=== PATIENT | male | born 1955 | race Caucasian/White ===

== ENCOUNTER 2016-07-17 09:52 | Emergency (ER) | payer SELFPAY ==
[~2016-07-17] VITALS: Ht 167.6 cm; Wt 79.0 kg
[2016-07-17 10:01] VITALS: Ht 167.6 cm; Wt 79.0 kg
[2016-07-17] MEDS ORDERED: morphine 4 MG/ML VIAL IV STA (10:23)
[2016-07-17] MEDS ORDERED: ONDANSETRON 4 MG INJ IV STA (10:23)
[2016-07-17] MEDS ORDERED: SOD CHLORIDE 0.9% 1,000 ML IV STA (10:23)
[2016-07-17 10:48] LABS: ADD SCAN DIFF NO
[2016-07-17 10:55] LABS: BASOPHILS % 0.2 % (0.0-2.0); HEMATOCRIT 46.1 % (42.0-52.0); HEMOGLOBIN 16.3 g/dl (14.0-18.0); LYMPHOCYTES # 1.3 10^3/ul (0.8-2.9); LYMPHOCYTES % 9.7 % (15.0-51.0); MEAN CORPUSCULAR HEMOGLOBIN 30.6 pg (29.0-33.0); MEAN CORPUSCULAR HGB CONC 35.4 g/dl (32.0-37.0); MEAN CORPUSCULAR VOLUME 86.5 fl (82.0-101.0); MONOCYTE # 1.2 10^3/ul (0.3-0.9); MONOCYTES % 8.9 % (0.0-11.0); NEUTROPHIL # 11.1 10^3/ul (1.6-7.5); PLATELET COUNT 313 10^3/UL (140-415); RED BLOOD COUNT 5.33 10^6/ul (4.70-6.10); RED CELL DISTRIBUTION WIDTH 12.3 % (11.5-14.5); WHITE BLOOD COUNT 13.8 10^3/ul (4.8-10.8)
[2016-07-17 10:58] LABS: ADD UMIC NO; URINE BILIRUBIN (Dip) NEGATIVE (NEGATIVE); URINE BLOOD (Dip) NEGATIVE (NEGATIVE); URINE COLOR LT. YELLOW (YELLOW); URINE GLUCOSE (Dip) NEGATIVE (NEGATIVE); URINE KETONES (Dip) NEGATIVE (NEGATIVE); URINE LEUKOCYTE ESTERASE (Dip) NEGATIVE (NEGATIVE); URINE NITRITE (Dip) NEGATIVE (NEGATIVE); URINE TOTAL PROTEIN (Dip) NEGATIVE (NEGATIVE); URINE UROBILINOGEN (Dip) 2.0 E.U./dL (0.1-1.0)
[2016-07-17 11:00] LABS: ALBUMIN 4.1 g/dl (3.3-4.9); CHLORIDE 98 mmol/L (97-110)
[2016-07-17 11:01] LABS: POTASSIUM 3.7 mmol/L (3.5-5.1); SODIUM 134 mmol/L (135-144)
[2016-07-17 11:03] LABS: ALBUMIN/GLOBULIN RATIO 1.05; ALKALINE PHOSPHATASE 104 IU/L (42-121); ANION GAP 13 (8-16); ASPARTATE AMINO TRANSFERASE 21 IU/L (15-46); BILIRUBIN,INDIRECT 0.9 mg/dl (0-1.1); BILIRUBIN,TOTAL 0.9 mg/dl (0.2-1.3); BLOOD UREA NITROGEN 12 mg/dl (7-20); CARBON DIOXIDE 27 mmol/L (21-31); CREATININE 0.92 mg/dl (0.61-1.24)
[2016-07-17 11:04] LABS: ALANINE AMINOTRANSFERASE 31 IU/L (13-69); CALCIUM 9.8 mg/dl (8.4-10.2); GLUCOSE 129 mg/dl (70-220)
[2016-07-17 11:18] LABS: TROPONIN-I < 0.012 ng/ml (0.00-0.12)
--- NOTE | 2016-07-17 11:24 | RADRPT ---
PROCEDURE: US Abdomen. CLINICAL INDICATION: abdominal pain TECHNIQUE: Multiple real-time images were acquired of the patient's right upper quadrant abdomen a nd retroperitoneum utilizing a high resolution transducer. COMPARISON: None FINDINGS: The liver demonstrates normal echogenicity. The liver is normal in size and no focal solid lesions are seen. The liver measures 14.6 cm in length. The portal vein is patent with normal direction of f low. No intrahepatic biliary dilatation is seen. There is a 1.1 cm stone within the gallbladder. There is no evidence of pericholecystic fluid. The gallbladder wall measures 3 mm in thickness.. The common bile duct measures 2 mm in maximal dimensi on. The pancreas is not seen due to overlying bowel gas. No free fluid is identified. The right kidney is normal in size, and demonstrate normal echogenicity and cortical thickness. The right kidney measures 10.1 cm in long dimension. There is no evidence of hydronephrosis. There are no kidney stones. RPTAT: AA IMPRESSION: Single calcified stone within the gallbladder with borderline gallbladder wall thickening. No evide nce of pericholecystic fluid. Negative sonographic Coker's sign. .Cody Contreras MD, Date Time Electronically viewed and signed by .Cody Contreras MD, on 07/17/2016 11:24 .S/
[2016-07-17] MEDS ORDERED: ONDA4TAB14 PO (11:38)
[2016-07-17] MEDS ORDERED: HYDR-902 PO (11:38)
--- NOTE | 2016-07-17 11:40 | ERD ---
ER Documentation Chief Complaint Date/Time DATE: 07/17/16 TIME: 11:40 Chief Complaint ap with n/v x 3 days; ROS All systems reviewed and are negative except as per history of present illness. Medications Home Meds Active Scripts Ondansetron (Ondansetron Odt) 4 Mg Tab.rapdis, 4 MG PO Q6H Y for NAUSEA AND/OR VOMITING, #30 TAB Prov:ARMAND MCKEON MD 07/17/16 Hydrocodone/Acetaminophen ([place] 10-325 Tablet) 1 Each Tablet, 1 TAB PO Q6H Y for PAIN, #12 TAB Prov:ARMAND MCKEON MD 07/17/16 PMhx/Soc Medical and Surgical Hx: pt denies Medical Hx, pt denies Surgical Hx Hx Alcohol Use: Yes (etoh "continuously" last drink monday) Hx Substance Use: No Hx Tobacco Use: No Smoking Status: Never smoker Physical Exam Vitals Vital Signs Date Time Temp Pulse Resp B/P Pulse Ox O2 Delivery O2 Flow Rate FiO2 07/17/16 10:01 98.2 67 18 180/89 99 Physical Exam Const: [] Head: Atraumatic Eyes: Normal Conjunctiva ENT: Normal External Ears, Nose and Mouth. Neck: Full range of motion..~ No meningismus. Resp: Clear to auscultation bilaterally Cardio: Regular rate and rhythm, no murmurs Abd: Soft, non tender, non distended. Normal bowel sounds Skin: No petechiae or rashes Back: No midline or flank tenderness Ext: No cyanosis, or edema Neur: Awake and alert Psych: Normal Mood and Affect Result Diagram: 07/17/16 1026 07/17/16 1026 Results 24 hrs Laboratory Tests Test 07/17/16 10:26 White Blood Count 13.810^3/ul Red Blood Count 5.3310^6/ul Hemoglobin 16.3g/dl Hematocrit 46.1% Mean Corpuscular Volume 86.5fl Mean Corpuscular Hemoglobin 30.6pg Mean Corpuscular Hemoglobin Concent 35.4g/dl Red Cell Distribution Width 12.3% Platelet Count 37907^3/UL Mean Platelet Volume 9.0fl Neutrophils % 81.0% Lymphocytes % 9.7% Monocytes % 8.9% Eosinophils % 0.0% Basophils % 0.2% Nucleated Red Blood Cells % 0.0/100WBC Neutrophils # 11.110^3/ul Lymphocytes # 1.310^3/ul Monocytes # 1.210^3/ul Eosinophils # 0.010^3/ul Basophils # 0.010^3/ul Nucleated Red Blood Cells # 0.010^3/ul Urine Color LT. YELLOW Urine Clarity CLEAR Urine pH 8.0 Urine Specific [place] 1.015 Urine Ketones NEGATIVE Urine Nitrite NEGATIVE Urine Bilirubin NEGATIVE Urine Urobilinogen 2.0 E.U./dL Urine Leukocyte Esterase NEGATIVE Urine Hemoglobin NEGATIVE Urine Glucose NEGATIVE% Urine Total Protein NEGATIVE Sodium Level 134mmol/L Potassium Level 3.7mmol/L Chloride Level 98mmol/L Carbon Dioxide Level 27mmol/L Anion Gap 13 Blood Urea Nitrogen 12mg/dl Creatinine 0.92mg/dl Glucose Level 129mg/dl Calcium Level 9.8mg/dl Total Bilirubin 0.9mg/dl Direct Bilirubin 0.00mg/dl Indirect Bilirubin 0.9mg/dl Aspartate Amino Transf (AST/SGOT) 21IU/L Alanine Aminotransferase (ALT/SGPT) 31IU/L Alkaline Phosphatase 104IU/L Troponin I < 0.012ng/ml Total Protein 8.0g/dl Albumin 4.1g/dl Globulin 3.90g/dl Albumin/Globulin Ratio 1.05 Lipase 51U/L Current Medications Medications (Trade) Dose Ordered Sig/[place] Route PRN Reason Start Time Stop Time Status Last Admin Dose Admin Sodium Chloride (NS) 1,000 ml @ 1,000 mls/hr Q1H STAT IV 07/17/16 10:23 07/17/16 11:22 DC 07/17/16 10:36 Morphine Sulfate (morphine) 4 mg ONCE STAT IV 07/17/16 10:23 07/17/16 10:54 DC 07/17/16 10:37 Ondansetron HCl (Zofran Inj) 4 mg ONCE STAT IV 07/17/16 10:23 07/17/16 10:54 DC 07/17/16 10:36 Procedures/MDM EKG read by me: Rate/Rhythm: Regular rate and rhythm at a rate of 64 Intervals: Normal Impression: No evidence of ischemia or arrhythmia Departure Diagnosis: Primary Impression: Biliary colic Additional Impression: Abdominal pain Condition: Fair Patient Instructions: Biliary Colic With Gallstone (Confirmed) Referrals: YARED COREA MD Additional Instructions: Specialist:Usted tiene fariba condicin mdica que requiere que florentin a un especialista dentro de los prximos 1-2 jarvis.POR FAVOR,CON DIOP SEGUIMIENTO DE PRIMARIA PHSICIAN refferal. SI USTED NO TIENE UN MDICO GENERAL Y / O USTED NO PUEDE PAGAR chanel a un mdico,los siguientes pacheco RECURSOS sido suministrado a usted. ES DIOP RESPONSABILIDAD PARA SER VISTOS POR EL ESPECIALISTA: ARMAND MCKEON MD Jul 17, 2016 11:40
[2016-07-17 12:24] VITALS: BP 161/85; PULSE 79; RESP 18; TEMP 98.2
== END 2016-07-17 12:24 | disposition home or self-care (01) ==
LOC: E/R 09:52
DX: K80.50 Calculus of bile duct without cholangitis or cholecystitis without obstruction (principal); R40.2252 Coma scale, best verbal response, oriented, at arrival to emergency department; R10.13 Epigastric pain; R11.2 Nausea with vomiting, unspecified; R40.2142 Coma scale, eyes open, spontaneous, at arrival to emergency department; R40.2362 Coma scale, best motor response, obeys commands, at arrival to emergency department
CPT/HCPCS: 36415; 76705; 80053; 81003; 83690; 84484; 85025; 93005; 96374; 96375; 99285; J2270; J2405; J7030

== ENCOUNTER 2016-11-04 09:52 | Emergency (ER) | payer OTHER ==
[~2016-11-04] VITALS: Wt 84.5 kg
[~2016-11-04 09:52] MED LIST: HYDR-902 PO; ONDA4TAB14 PO
[2016-11-04 10:57] LABS: URINE BLOOD (Dip) POC Negative (NEGATIVE)
[2016-11-04] MEDS ORDERED: IBUPROFEN 200 MG TAB PO ONE (11:00)
[2016-11-04] MEDS ORDERED: ACETAMINOPHEN 325 MG TAB PO ONE (11:00)
--- NOTE | 2016-11-04 11:47 | RADRPT ---
PROCEDURE: Chest x-ray CLINICAL INDICATION: Fever TECHNIQUE: Chest single view COMPARISON: None FINDINGS: The heart is normal in size. The pulmonary vessels are normal in caliber. The lungs are clear. Th e costophrenic angles are sharp. The visualized bony thorax is unremarkable. IMPRESSION: No acute cardiopulmonary disease. RPTAT: HH .Jerome Cho MD, MD Date Time Electronically viewed and signed by .Jerome Cho MD, on 11/04/2016 11:47 .W/
[2016-11-04] MEDS ORDERED: IBUP-1542 PO (12:17)
[2016-11-04] MEDS ORDERED: ACET500C5 PO (12:17)
[2016-11-04] MEDS ORDERED: D-ME473S18 PO (12:17)
[2016-11-04] MEDS ORDERED: OSLT75C PO (12:17)
--- NOTE | 2016-11-04 12:22 | ERD ---
ER Documentation Chief Complaint Date/Time DATE: 11/04/16 TIME: 12:20 Chief Complaint FEVER X 1 DAY WITH BODYACHE HPI 60-year-old male presents with fever and body aches and cough since yesterday. Denies vomiting, abdominal pain, diarrhea, urinary complaints, neck stiffness, rashes, chest pain. ROS All systems reviewed and are negative except as per history of present illness. Medications Home Meds Active Scripts Oseltamivir Phosphate* (Tamiflu*) 75 Mg Capsule, 75 MG PO BID for 5 Days, CAP Prov:NATALIE BRUNO MD 11/04/16 Dextromethorphan Hb-Promethazine Hcl (Promethazine DM Syrup) 473 Ml Syrup, 5 ML PO Q6H, #4 OZ Prov:NATALIE BRUNO MD 11/04/16 Acetaminophen* (Tylophen*) 500 Mg Capsule, 1 CAP PO Q6H Y for PAIN AND OR ELEVATED TEMP, #15 CAP Prov:NATALIE BRUNO MD 11/04/16 Ibuprofen* (Motrin*) 600 Mg Tab, 600 MG PO Q6, #15 TAB Prov:NATALIE BRUNO MD 11/04/16 Ondansetron (Ondansetron Odt) 4 Mg Tab.rapdis, 4 MG PO Q6H Y for NAUSEA AND/OR VOMITING, #30 TAB Prov:ARMAND MCKEON MD 07/17/16 Hydrocodone/Acetaminophen ([place] 10-325 Tablet) 1 Each Tablet, 1 TAB PO Q6H Y for PAIN, #12 TAB Prov:ARMAND MCKEON MD 07/17/16 Allergies Allergies: Coded Allergies: No Known Allergy (Unverified , 11/04/16) PMhx/Soc Medical and Surgical Hx: pt denies Medical Hx, pt denies Surgical Hx Hx Alcohol Use: Yes (etoh "continuously" last drink monday) Hx Substance Use: No Hx Tobacco Use: No Smoking Status: Former smoker Physical Exam Vitals Vital Signs Date Time Temp Pulse Resp B/P Pulse Ox O2 Delivery O2 Flow Rate FiO2 11/04/16 09:59 103.1 110 18 156/81 99 Physical Exam Const: [] Alert, pleasant, [id number] per Head: Atraumatic Eyes: Normal Conjunctiva ENT: Normal External Ears, Nose and Mouth. TMs and oropharynx normal. Neck: Full range of motion..~ No meningismus. Resp: Clear to auscultation bilaterally. Dry cough without rales or wheezing retractions. Cardio: Regular rate and rhythm, no murmurs Abd: Soft, non tender, non distended. Normal bowel sounds Skin: No petechiae or rashes Back: No midline or flank tenderness Ext: No cyanosis, or edema Neur: Awake and alert Psych: Normal Mood and Affect Results 24 hrs Laboratory Tests Test 11/04/16 11:01 Bedside Urine pH (LAB) 6.0 Bedside Urine Protein (LAB) Negative Bedside Urine Glucose (UA) Negative Bedside Urine Ketones (LAB) Negative Bedside Urine Blood Negative Bedside Urine Nitrite (LAB) Negative Bedside Urine Leukocyte Esterase (L Negative Current Medications Medications (Trade) Dose Ordered Sig/[place] Route PRN Reason Start Time Stop Time Status Last Admin Dose Admin Acetaminophen (Tylenol Tab) 650 mg ONCE ONCE PO 11/04/16 11:00 11/04/16 11:01 DC 11/04/16 10:52 Ibuprofen (Motrin) 400 mg ONCE ONCE PO 11/04/16 11:00 11/04/16 11:01 DC 11/04/16 10:52 Procedures/MDM Chest X-ray 1V Interpreted by me: Soft Tissue: No acute abnormalities Bones: No acute abnormalities Mediastinum/Cardiac Silhouette/Lungs: [No acute abnormalities]. Impression- normal 1 view chest x-ray Urine is negative for leukocytes, nitrites, blood, glucose Patient is given Tylenol and ibuprofen for fever. Patient was observed till fever curve improved. Patient presents with fever and URI symptoms of one days duration without evidence of respiratory distress, hypoxemia. Symptoms compatible with flu type illness or viral syndrome. Patient was treated with fever control, promethazine and Tamiflu. The patient was stable with no new complaints during the ER course. Clinically, there is no current evidence to suggest meningitis, sepsis, acute abdomen, pneumonia, acute coronary syndrome, pulmonary embolism, or any other emergent condition appearing to require further evaluation or hospitalization. The patient should certainly return for any new or worsening symptoms per the aftercare instructions. They should otherwise follow-up with her primary care doctor for reevaluation this week. Departure Diagnosis: Primary Impression: URI, acute Additional Impression: Fever Fever type: unspecified Qualified Code: R50.9 - Fever, unspecified fever cause Condition: Stable Patient Instructions: Fever Control (Adult), Uri, Viral, No Abx (Adult) Additional Instructions: Examines normal hoy. Cheque otro vez con mata doctor primario en el proximo maldonado or regresa para mas o nueva simptomas. probablamente un virus que dura 2-4 maldonado. cheque otro misty el proximo mya para mas simptomas- vomito, dolor, janey, problemas con respirando, o con mata doctor primario. NATALIE BRUNO MD Nov 04, 2016 12:22
[2016-11-04 13:10] VITALS: TEMP 99.7
== END 2016-11-04 13:58 | disposition home or self-care (01) ==
LOC: FTE 09:52
DX: J06.9 Acute upper respiratory infection, unspecified (principal); Z87.891 Personal history of nicotine dependence
CPT/HCPCS: 71010; 81003; Z7610